=== PATIENT | female | born 1990 | race Caucasian/White ===

== ENCOUNTER 2017-03-29 17:08 | Emergency (ER) | payer OTHER ==
[~2017-03-29] VITALS: Ht 165.1 cm; Wt 96.9 kg
[~2017-03-29 17:08] MED LIST: CITRATE OF MAG296 ML PO; KEFLEX500 MG PO; LEXAPRO20 MG PO; OXAYDO5 MG PO; PEPCID20 MG PO; PRENATAL TABLE1 EAC3 PO; PROMETHAZINE HC25 M1 PO; ZOFRAN8 MG PO
[2017-03-29 17:50] LABS: HEMATOCRIT 36.8 % (36.0-46.0); MCH 25.1 PG (29.0-34.0); MCHC 31.3 G/DL (30.0-36.0); MCV 80.3 FL (83-99); MEAN PLAT.VOLUME 9.2 uM^3 (9.5-12.4); PLATELET COUNT 587 K/uL (156-360); RBC DIS.WIDTH-CV 13.8 % (11.8-14.6); RBC DIS.WIDTH-SD 40.3 % (39-53); RED BLOOD COUNT 4.58 M/uL (3.80-5.20); WHITE BLOOD COUNT 10.7 K/uL (4.1-10.2)
[2017-03-29 18:02] LABS: CHLORIDE 109 mEq/L (99-109); POTASSIUM 3.5 mEq/L (3.7-5.4); SODIUM 141 mEq/L (136-147)
[2017-03-29 18:05] LABS: GLUCOSE 104 mg/dL (70-99)
[2017-03-29 18:06] LABS: ANION GAP 11 MEQ/L (2-14)
[2017-03-29 18:07] LABS: TOTAL BILIRUBIN 0.3 mg/dL (0.0-1.0)
[2017-03-29 18:08] LABS: ALKALINE PHOSPHATASE 116 IU/L (3-129); GFR ESTIMATE (CALCULATED) > 59 mL/min/
[2017-03-29 18:09] LABS: UREA NITROGEN (BUN) 10 mg/dL (9-23)
[2017-03-29 18:17] LABS: QUANTITATIVE HCG < 4.0 MIU/ML
[2017-03-29 18:42] LABS: ADD MIUA? YES; BILIRUBIN NEGATIVE; BLOOD NEGATIVE; COLOR YELLOW ((YELLOW)); GLUCOSE (STRIP) NEGATIVE; KETONES 5; LEUKOCYTES SMALL; NITRITE NEGATIVE; PROTEIN (STRIP) NEGATIVE; SPECIFIC GRAVITY 1.028 (1.000-1.030); UROBILINOGEN 0.2 MG/DL (0.2-1.0)
[2017-03-29 18:45] LABS: BACTERIA NONE SEEN /HPF; EPITHELIAL CELLS 1+ /HPF; MUCUS TRACE /LPF; RED BLOOD CELLS 0-5 /HPF (0-5); UCUL ADDED? YES
[2017-03-29] MEDS ORDERED: OMEPRAZOLE40 M1 PO (21:04)
[2017-03-29] MEDS ORDERED: ZOFRAN4 MG PO (21:06)
[2017-03-29 21:13] VITALS: BP 114/82
[2017-03-29 21:38] LABS: LIPASE 22 U/L (1.0-51.0)
== END 2017-03-29 21:48 | disposition home or self-care (01) ==
LOC: EME 17:08 → EXP 17:08
DX: R10.10 Upper abdominal pain, unspecified (principal); R11.2 Nausea with vomiting, unspecified; R07.9 Chest pain, unspecified; R19.7 Diarrhea, unspecified; K59.00 Constipation, unspecified; Z87.891 Personal history of nicotine dependence
CPT/HCPCS: 80053; 81003; 83690; 84702; 85027; 87086; 99281; 99285

== ENCOUNTER 2017-07-01 17:17 | Emergency (ER) | payer OTHER ==
[~2017-07-01] VITALS: Ht 165.1 cm; Wt 95.7 kg
[~2017-07-01 17:17] MED LIST changes: +OMEPRAZOLE40 M1 PO; +ZOFRAN4 MG PO
[2017-07-01 18:33] LABS: HEMATOCRIT 39.6 % (36.0-46.0); HEMOGLOBIN 12.4 G/DL (11.9-15.5); MCH 24.4 PG (29.0-34.0); MCHC 31.3 G/DL (30.0-36.0); MCV 77.8 FL (83-99); PLATELET COUNT 562 K/uL (156-360); RBC DIS.WIDTH-CV 16.4 % (11.8-14.6); RBC DIS.WIDTH-SD 46.5 % (39-53); RED BLOOD COUNT 5.09 M/uL (3.80-5.20); WHITE BLOOD COUNT 10.3 K/uL (4.1-10.2)
[2017-07-01 18:43] LABS: ALBUMIN 4.3 g/dL (3.2-4.8)
[2017-07-01 18:44] LABS: CHLORIDE 109 mEq/L (99-109); SODIUM 140 mEq/L (136-147)
[2017-07-01 18:46] LABS: GLUCOSE 83 mg/dL (70-99); TOTAL PROTEIN 7.6 g/dL (6.4-8.3)
[2017-07-01 18:48] LABS: TOTAL BILIRUBIN 0.6 mg/dL (0.0-1.0)
[2017-07-01 18:49] LABS: ALKALINE PHOSPHATASE 107 IU/L (3-129)
[2017-07-01 18:50] LABS: CREATININE 0.8 mg/dL (0.6-1.3); GFR ESTIMATE (CALCULATED) > 59 mL/min/
[2017-07-01 18:51] LABS: AST (GOT) 15 IU/L (2-34); UREA NITROGEN (BUN) 11 mg/dL (9-23)
[2017-07-01 18:52] LABS: ALT (GPT) 20 IU/L (3-49)
[2017-07-01 18:53] LABS: LIPASE 28 U/L (1.0-51.0)
[2017-07-01 18:59] LABS: QUANTITATIVE HCG < 4.0 MIU/ML
[2017-07-01 20:10] LABS: APPEARANCE SL.HAZY ((CLEAR)); BILIRUBIN MODERATE; BLOOD NEGATIVE; COLOR AMBER ((YELLOW)); GLUCOSE (STRIP) NEGATIVE; KETONES 20; LEUKOCYTES MODERATE; NITRITE NEGATIVE; PROTEIN (STRIP) 100; SPECIFIC GRAVITY 1.043 (1.000-1.030)
[2017-07-01 20:17] LABS: BACTERIA NONE SEEN /HPF; EPITHELIAL CELLS 2+ /HPF; HYALINE CASTS 0-5 /LPF; MUCUS 2+ /LPF; RED BLOOD CELLS 0-5 /HPF (0-5); UCUL ADDED? YES
[2017-07-01] MEDS ORDERED: PROTONIX20 MG PO (20:24)
[2017-07-01 20:36] LABS: ICTOTEST NEGATIVE
[2017-07-01 21:12] VITALS: BP 150/86
== END 2017-07-01 21:13 | disposition home or self-care (01) ==
LOC: EME 17:17 → RME 17:17
DX: R10.13 Epigastric pain (principal); Z87.891 Personal history of nicotine dependence; Z90.49 Acquired absence of other specified parts of digestive tract; Z88.0 Allergy status to penicillin
CPT/HCPCS: 80053; 81003; 83690; 84702; 85027; 87086; 93005

== ENCOUNTER 2017-08-03 17:08 | Emergency (ER) | payer OTHER ==
[~2017-08-03] VITALS: Ht 170.2 cm; Wt 97.4 kg
[~2017-08-03 17:08] MED LIST changes: +PROTONIX20 MG PO
[2017-08-03 18:03] LABS: HEMATOCRIT 41.5 % (36.0-46.0); MCH 24.7 PG (29.0-34.0); MCHC 31.3 G/DL (30.0-36.0); MCV 78.9 FL (83-99); PLATELET COUNT 522 K/uL (156-360); RBC DIS.WIDTH-CV 16.5 % (11.8-14.6); RBC DIS.WIDTH-SD 47.5 % (39-53); RED BLOOD COUNT 5.26 M/uL (3.80-5.20)
[2017-08-03 18:27] LABS: ALBUMIN 4.2 g/dL (3.2-4.8)
[2017-08-03 18:28] LABS: CHLORIDE 108 mEq/L (99-109); POTASSIUM 3.8 mEq/L (3.7-5.4); SODIUM 138 mEq/L (136-147)
[2017-08-03 18:30] LABS: GLUCOSE 98 mg/dL (70-99); TOTAL PROTEIN 7.6 g/dL (6.4-8.3)
[2017-08-03 18:32] LABS: TOTAL BILIRUBIN 0.7 mg/dL (0.0-1.0)
[2017-08-03 18:34] LABS: ALKALINE PHOSPHATASE 124 IU/L (3-129); CREATININE 0.8 mg/dL (0.6-1.3); GFR ESTIMATE (CALCULATED) > 59 mL/min/
[2017-08-03 18:35] LABS: AST (GOT) 31 IU/L (2-34); UREA NITROGEN (BUN) 11 mg/dL (9-23)
[2017-08-03 18:37] LABS: ALT (GPT) 37 IU/L (3-49)
[2017-08-03 18:53] LABS: QUANTITATIVE HCG < 4.0 MIU/ML
[2017-08-03 19:30] LABS: APPEARANCE CLEAR ((CLEAR)); BILIRUBIN NEGATIVE; BLOOD NEGATIVE; COLOR YELLOW ((YELLOW)); GLUCOSE (STRIP) NEGATIVE; KETONES NEGATIVE; LEUKOCYTES SMALL; NITRITE NEGATIVE; PROTEIN (STRIP) NEGATIVE; SPECIFIC GRAVITY 1.018 (1.000-1.030); UROBILINOGEN 0.2 MG/DL (0.2-1.0)
[2017-08-03 19:45] LABS: BACTERIA RARE /HPF; EPITHELIAL CELLS 1+ /HPF; MUCUS TRACE /LPF; RED BLOOD CELLS 0-5 /HPF (0-5); UCUL ADDED? NO; WHITE BLOOD CELLS 0-5 /HPF (0-5)
[2017-08-03] MEDS ORDERED: MOTRIN600 MG PO (20:41)
[2017-08-03] MEDS ORDERED: ZOFRAN4 MG PO (20:41)
[2017-08-03 21:21] VITALS: BP 109/57
== END 2017-08-03 21:22 | disposition home or self-care (01) ==
LOC: EME 17:08
DX: B34.9 Viral infection, unspecified (principal)
CPT/HCPCS: 80053; 81003; 84702; 85027; 87502; 87651 90; 99281; 99284